=== PATIENT | male | born 1975 | race Caucasian/White ===

== ENCOUNTER 2016-04-09 20:37 | Emergency (ER) | payer MEDICAID ==
[~2016-04-09] VITALS: Ht 162.6 cm; Wt 87.6 kg
[~2016-04-09 20:37] MED LIST: BENADRYL50 MG PO; HYDROCHLOROTHIA25 M1; LIBRIUM5 M1 PO; LISINOPRIL20 M1; PROAIR HFA0.09 MG/Ac IH; VITAMIN B1 NAT100 MG PO; ZESTRIL10 MG PO; ZESTRIL20 MG PO; [UNRECOGNIZED DRUG - SUPPLY]
[2016-04-09 20:42] VITALS: BP 130/55
--- NOTE | 2016-04-09 21:33 | NUR ---
PT TAKEN TO OVERFLOW
--- NOTE | 2016-04-09 21:41 | NUR ---
AMBULATED TO ER BED 2
--- NOTE | 2016-04-09 21:53 | NUR ---
PATIENT PRESENTS TO ED WITH RECTAL BLEED X 1 MONTH AND COUGH X 2 WEEKS . PT DENIES N/V/D; SKIN IS PINK/WARM/DRY; AAOX4 WITH EVEN AND STEADY GAIT; LUNGS CLEAR BL; HR EVEN AND REGULAR; PT DENIES ANY FEVER, CP,OR SOB,AT THIS TIME; PATIENT STATES PAIN OF 10/10 AT THIS TIME; VSS; PATIENT POSITIONED FOR COMFORT; HOB ELEVATED; BEDRAILS UP X2; BED DOWN. ER MD MADE AWARE OF PT STATUS.
[2016-04-09] MEDS ORDERED: PANTOPRAZOLE 40 MG INJ VIAL IVP ONE (22:10)
[2016-04-09] MEDS ORDERED: NACL 0.9% 2,000 ML IV ONE (22:10)
--- NOTE | 2016-04-09 22:28 | NUR ---
LABS AND US DONE AT BEDSIDE
--- NOTE | 2016-04-09 23:19 | NUR ---
xray at bedside
[2016-04-09] MEDS ORDERED: MORPHINE SULFATE 4 MG/ML SYR IVP ONE (23:55)
[2016-04-09] MEDS ORDERED: ONDANSETRON 4 MG/2 ML VIAL IVP ONE (23:55)
[2016-04-09] MEDS ORDERED: ALUMINUM HYD/MAG/SIMETHICONE 30 ML, BELLADONNA/PHENOBARBITAL 10 ML, LIDOCAINE VISCOUS 2... PO ONE (23:55)
--- NOTE | 2016-04-10 00:25 | NUR ---
meds given to pt, tolerated well.
--- NOTE | 2016-04-10 01:29 | NUR ---
Patient discharged with v/s stable. Written and verbal after care instructions given and explained. Patient alert, oriented and verbalized understanding of instructions. Ambulatory with steady gait. All questions addressed prior to discharge. ID band removed. Patient advised to follow up with PMD. Rx of levaquin, pepcid and norco given. Patient educated on indication of medication including possible reaction and side effects. Opportunity to ask questions provided and answered.
[2016-04-10 01:30] VITALS: BP 117/79
== END 2016-04-10 01:31 | disposition home or self-care (01) ==
LOC: MED 20:37
DX: J18.9 Pneumonia, unspecified organism (principal); K74.60 Unspecified cirrhosis of liver; F10.10 Alcohol abuse, uncomplicated; J45.909 Unspecified asthma, uncomplicated; K21.9 Gastro-esophageal reflux disease without esophagitis; I10 Essential (primary) hypertension; Y90.9 Presence of alcohol in blood, level not specified
CPT/HCPCS: 36415; 71010; 76705; 80053; 80305; 81001; 83690; 85025; 85610; 85730; 86886; 86900; 86901; 96361; 96374; 96375; 99285; C9113; J2270; J2405; Q0092

== ENCOUNTER 2016-05-15 21:03 | Inpatient (IN) | payer MEDICAID ==
[~2016-05-15] VITALS: Ht 162.6 cm; Wt 86.2 kg
[~2016-05-15 21:03] MED LIST changes: -BENADRYL50 MG PO; -HYDROCHLOROTHIA25 M1; -LIBRIUM5 M1 PO; +LISI-420 PO; -LISINOPRIL20 M1; -PROAIR HFA0.09 MG/Ac IH; -VITAMIN B1 NAT100 MG PO; -ZESTRIL10 MG PO; -ZESTRIL20 MG PO; -[UNRECOGNIZED DRUG - SUPPLY]
[2016-05-15 21:27] VITALS: BP 126/69
--- NOTE | 2016-05-15 21:50 | NUR ---
PT TAKEN TO BED 6
[2016-05-15] MEDS ORDERED: NACL 0.9% 1,000 ML IV SCH (22:04)
[2016-05-15] MEDS ORDERED: OCTREOTIDE ACETATE 1.25 MG in NACL 0.9% 250 ML IV SCH ×2 (22:05→23:35)
--- NOTE | 2016-05-15 22:12 | NUR ---
PATIENT PRESENTS TO 40Y M PRESENT TO ER C/O VOMITTING BLOOD AND BLOOD IN STOOL THAT HAPPENS DAILY. C/O OF PAIN TO RUQ. PAIN 10/10 IN SCALE. HX CIRRHOSIS OF LIVER, HEPATITIS, ETOH, HTN. PATIENT STATES PAIN OF 10/10 AT THIS TIME; VSS; PATIENT POSITIONED FOR COMFORT; HOB ELEVATED; BEDRAILS UP X2; BED DOWN. ER MD MADE AWARE OF PT STATUS.
--- NOTE | 2016-05-15 22:23 | NUR ---
XRAY AT BEDSIDE
[2016-05-15 22:32] LABS: HEMATOCRIT 38.1 % (36-52); HEMOGLOBIN 12.3 g/dL (12.0-18.0); MEAN CORPUSCULAR HEMOGLOBIN 29 pg (27-31); MEAN CORPUSCULAR HGB CONC 32 g/dL (33-37); MEAN CORPUSCULAR VOLUME 90 fL (80-94); PLATELET COUNT (AUTO) 98 K/uL (140-450); RED BLOOD CELL COUNT(AUTO) 4.24 MIL/uL (4.20-6.10); RED CELL DISTRIBUTION WIDTH 13.5 % (11.6-13.7); WHITE BLOOD COUNT (AUTO) 9.7 K/uL (4.8-10.8)
[2016-05-15 22:42] LABS: ANION GAP 14.8 (8-16); CALCIUM 8.2 mg/dL (8.5-10.1); CARBON DIOXIDE 27.2 mmol/L (21-32)
[2016-05-15] MEDS ORDERED: OCTREOTIDE ACETATE 100 MCG/ML VIAL IV STA (22:43)
[2016-05-15 22:48] LABS: ALBUMIN 3.2 g/dL (3.4-5.0); TOTAL BILIRUBIN 0.8 mg/dL (0.0-1.0); TOTAL PROTEIN, SERUM 8.5 g/dL (6.4-8.2)
[2016-05-15 22:50] LABS: EOSINOPHILS % (MANUAL) 3 % (0-4); LYMPHOCYTES % (MANUAL) 21 % (20-46); MONOCYTES % (MANUAL) 7 % (5-12); NEUTROPHILS % (MANUAL) 69 (43-65); PLATELET ESTIMATE GIANT PLATELET SEEN
[2016-05-15] MEDS ORDERED: OCTREOTIDE ACETATE 1000 MCG/5 ML VIAL ONE (22:54)
[2016-05-15] MEDS ORDERED: ONDANSETRON 4 MG/2 ML VIAL IVP ONE (23:55)
--- NOTE | 2016-05-15 23:55 | NUR ---
Patient will be admitted to care of DR. PASCUAL. Admited to TELE. Will go to [id number]. Belongings list completed. Report GIVEN TO NEISHA BENAVIDES.
[2016-05-16] MEDS ORDERED: LORazepam 2 MG/ML VIAL IM/IVP PRN (00:10)
[2016-05-16] MEDS ORDERED: HYDROcodone/APAP 7.5/325 MG 1 TAB PO PRN (00:10)
[2016-05-16] MEDS ORDERED: ONDANSETRON 4 MG/2 ML VIAL IVP PRN (00:10)
[2016-05-16] MEDS ORDERED: MORPHINE SULFATE 2 MG/ML SYR IVP PRN (00:10)
[2016-05-16] MEDS ORDERED: ACETAMINOPHEN 325 MG TAB PO PRN (00:10)
[2016-05-16] MEDS ORDERED: LORazepam 0.5 MG TAB PO PRN (00:10)
--- NOTE | 2016-05-16 00:15 | NUR ---
PT TRANSFERRED TO FLOOR VIA GURNEY ACCOMPANIED BY RN AND EMT ON GUARDED CONDITION. ATTACHED TO MOTION PICTURE PROJECTIONIST APPRENTICE.
[2016-05-16 00:30] VITALS: BP 130/71
--- NOTE | 2016-05-16 00:30 | NUR ---
ADMITTED THIS 40 YEAR OLD MALE WITH CC OF HEMATEMESIS AND ABDOMINAL PAIN, AMBULATORY TO BED, ASSESSMENT DONE, VITAL SIGNS STABLE, 10/10 PAIN LEVEL AT THIS TIME, WILL MEDICATE PRN, NO HEMATEMESIS NOTED AT THIS TIME, NPO EXCEPT MEDS AT THIS TIME, PT MADE AWARE AND VERBALIZED UNDERSTANDING, ORIENTED TO ROOM AND CALL LIGHT, IVF AND SANDOSTATIN DRIP AT 5ML/H INFUSING WELL, SAFETY MEASURES IN PLACE, CALL LIGHT WITHIN REACH.
[2016-05-16 00:37] LABS: INR 1.3 (0.8-1.2); PARTIAL THROMBOPLASTIN TIME 28.5 secs (22-35.6); PROTHROMBIN TIME 12.8 secs (10.8-13.4)
[2016-05-16 00:50] LABS: ALBUMIN 3.3 g/dL (3.4-5.0); BILIRUBIN,DIRECT 0.5 mg/dL (0.0-0.3); CHOL/HDL RATIO 6.9 (1-4.5); MAGNESIUM 1.9 mg/dL (1.8-2.4); TOTAL BILIRUBIN 0.8 mg/dL (0.0-1.0); TOTAL PROTEIN, SERUM 8.4 g/dL (6.4-8.2)
[2016-05-16 00:58] LABS: APPEARANCE,URINE CLEAR (CLEAR); BILIRUBIN,URINE NEGATIVE (NEGATIVE); BLOOD, URINE NEGATIVE (NEGATIVE); COLOR,URINE YELLOW (YELLOW); LEUKOCYTE ESTERASE ,URINE NEGATIVE (NEGATIVE); NITRITE, URINE NEGATIVE (NEGATIVE); PH,URINE 5.5 (5.0-9.0); PROTEIN,URINE NEGATIVE (NEGATIVE); UGLUCOSE NEGATIVE (NEGATIVE); UROBILINOGEN,URINE 0.2 EU/dL (0.2 - 1)
[2016-05-16 00:58] LABS: FREE T4 (FREE THYROXINE) 1.13 ng/dL (0.76-1.46); THYROID STIMULATING HORMONE 2.57 uIU/mL (0.34-3.76)
[2016-05-16] MEDS ORDERED: PANTOPRAZOLE 40 MG INJ VIAL IVP SCH ×2 (01:00→09:00)
[2016-05-16 01:05] LABS: AMPHETAMINE, URINE NEG. ng/ml (NEG <=1000); BARBITURATE, URINE NEG. ng/ml (NEG <=200); BENZODIAZEPINE, URINE NEG. ng/mL (NEG <=200); CANNABINOID, URINE NEG. ng/mL (NEG <=50); COCAINE, URINE NEG. ng/mL (NEG <=300); OPIATE, URINE NEG. ng/mL (NEG <=2000); PHENCYCLIDINE SCREEN,URINE NEG. ng/mL (NEG <=25)
[2016-05-16 01:18] LABS: BACTERIA,URINE R /HPF (None Seen); RBC,URINE 0-5 (RARE) /HPF (0-5); SQUAMOUS EPITHELIAL CELL,UR 0-3 (FEW) /LPF (0-3 (FEW)); WBC,URINE 0-5 (RARE) /HPF (0-5)
[2016-05-16] MEDS: NACL 0.9% 1,000 ML IV SCH ×2 (01:18→08:54)
--- NOTE | 2016-05-16 01:20 | NUR ---
MEDICATED PRN WITH MORPHINE IVP, FIRST DOSE OF PROTONIX GIVEN, VOIDING FREELY PER URINAL, ALL NEEDS ATTENDED.
[2016-05-16] MEDS ORDERED: INFLUENZA VIRUS VACCINE QUAD 0.5 ML SYR IMVAC PRN (01:45)
--- NOTE | 2016-05-16 03:00 | NUR ---
ROUNDED ON PT, SLEEPING, NO SIGNS OF DISTRESS, MONITORED CLOSELY.
[2016-05-16 04:00] VITALS: BP 107/54
--- NOTE | 2016-05-16 04:00 | NUR ---
ASLEEP, EASILY AROUSABLE, VITAL SIGNS STABLE, DENIES PAIN, IVF INFUSING WELL, MAINTAINED ON NPO EXCEPT MEDS.
--- NOTE | 2016-05-16 05:29 | NUR ---
PT REFUSED SCD AT THIS TIME, RISK AND BENEFITS EXPLAINED, WILL TRY AGAIN LATER, WILL ENDORSE.
--- NOTE | 2016-05-16 06:30 | NUR ---
SLEEPING, NO SIGNS OF DISTRESS, NO EPISODE OF HEMATEMESIS NOTED, MAINTAINED ON NPO EXCEPT MEDS, IVF INFUSING WELL.
[2016-05-16 07:02] LABS: BASOPHILS # (AUTO) 0.1 K/uL (0.00-0.22); EOSINOPHILS # (AUTO) 0.1 K/uL (0-0.4); EOSINOPHILS % (AUTO) 1.7 % (0.0-4.0); HEMATOCRIT 35.4 % (36-52); HEMOGLOBIN 11.6 g/dL (12.0-18.0); LYMPHOCYTES # (AUTO) 1.8 K/uL (2.0-11.5); LYMPHOCYTES % (AUTO) 26.1 % (20.5-51.1); MEAN CORPUSCULAR HEMOGLOBIN 30 pg (27-31); MEAN CORPUSCULAR HGB CONC 33 g/dL (33-37); MEAN CORPUSCULAR VOLUME 91 fL (80-94); MONOCYTES # (AUTO) 0.7 K/uL (0.8-1.0); MONOCYTES % (AUTO) 9.9 % (1.7-9.3); NEUTROPHILS # (AUTO) 4.3 K/uL (1.8-7.7); NEUTROPHILS % (AUTO) 60.3 % (42.2-75.2); PLATELET COUNT (AUTO) 89 K/uL (140-450); RED BLOOD CELL COUNT(AUTO) 3.91 MIL/uL (4.20-6.10); RED CELL DISTRIBUTION WIDTH 13.6 % (11.6-13.7)
--- NOTE | 2016-05-16 07:17 | NUR ---
PT AWAKE, NO DISTRESS NOTED, REPORT GIVEN TO RN KEM FOR CONTINUITY OF CARE.
--- NOTE | 2016-05-16 07:20 | NUR ---
RECEIVED REPORT FROM MANAGER ENVIRONMENTAL HEALTH RN. PT IS SLEEPING. NO S/S OF ACUTE CARDIAC/RESPIRATORY DISTRESS OR DISCOMFORT. SAFETY MEASURES IN PLACE, CALL LIGHT WITHIN REACH. WILL CONTINUE PLAN OF CARE AND CONTINUE TO MONITOR.
[2016-05-16 07:27] LABS: ANION GAP 14.2 (8-16); CALCIUM 7.8 mg/dL (8.5-10.1); CARBON DIOXIDE 24.6 mmol/L (21-32); POTASSIUM 4.8 mmol/L (3.5-5.1)
[2016-05-16 07:30] LABS: MAGNESIUM 1.8 mg/dL (1.8-2.4); PHOSPHORUS 4.4 mg/dL (2.5-4.9)
[2016-05-16 08:00] VITALS: BP 125/74
[2016-05-16] MEDS ORDERED: LISINOPRIL 20 MG TAB PO SCH (09:00)
[2016-05-16] MEDS ORDERED: FAMOTIDINE 20 MG TAB PO SCH (09:00)
[2016-05-16] MEDS ORDERED: DOCUSATE SODIUM 100 MG GELCAP PO SCH (09:00)
--- NOTE | 2016-05-16 10:00 | NUR ---
PT STATED HE DOES NOT WANT TO CONTINUE WITH THE RECOMMENDED PROCEDURES AND WANTS TO LEAVE. DR MACHADO INFORMED HIM OF RISKS IF HE WILL LEAVE AMA, PT VERBALIZED UNDERSTANDING. PT SIGNED AMA FORM. ARM BANDS REMOVED, IVS REMOVED AND INTACT. TELE MONITOR RETURNED TO NURSING STATION. PT HAS NO S/S OF ACUTE DISTRESS OR DISCOMFORT. PT IN STABLE CONDITION. PT ESCORTED TO FRONT LOBBY TO BE PICKED UP BY .
[2016-05-16] MEDS ORDERED: LORazepam 0.5 MG TAB PO SCH (13:00)
== END 2016-05-16 10:00 | disposition left against medical advice (07) | DRG 770 ==
LOC: MED 21:03 → MTU 23:50
PROVIDERS: ADMIT Family Medicine; ATTEND Family Medicine
DX: F10.129 Alcohol abuse with intoxication, unspecified (principal); I85.11 Secondary esophageal varices with bleeding; G92 Toxic encephalopathy; E44.0 Moderate protein-calorie malnutrition; K70.30 Alcoholic cirrhosis of liver without ascites; I10 Essential (primary) hypertension; B19.20 Unspecified viral hepatitis C without hepatic coma; J45.909 Unspecified asthma, uncomplicated; K21.9 Gastro-esophageal reflux disease without esophagitis; Y90.8 Blood alcohol level of 240 mg/100 ml or more; E66.9 Obesity, unspecified; Z68.32 Body mass index [BMI] 32.0-32.9, adult
CPT/HCPCS: 36415; 71010; 80048; 80053; 80076; 80305; 81001; 82150; 83036; 83605; 83690; 83735; 84100; 84439; 84443; 85025; 85610; 85730; 87081; 96365; 96375; 99291; C9113; G0482; J2270; J2354; J2405; J7030; J7060; Q0092

== ENCOUNTER 2016-05-20 20:53 | Emergency (ER) | payer MEDICAID ==
[~2016-05-20] VITALS: Ht 162.6 cm; Wt 88.5 kg
[2016-05-20 20:58] VITALS: BP 134/75
--- NOTE | 2016-05-20 22:18 | NUR ---
PT TAKEN TO BED 8
--- NOTE | 2016-05-20 22:19 | NUR ---
PATIENT PRESENTS TO ED WITH VOMITING BLOOD X 3 WEEKS . PT STATES HE WAS DX WITH DIVERTICULOSIS, CIRRROHIS OF THE LIVER HERE AT [facility]. PT STATES HE HAS N/V/D [facility] FOR 3 WEEKS; SKIN IS PINK/WARM/DRY; AAOX4 WITH EVEN AND STEADY GAIT; LUNGS CLEAR BL; HR EVEN AND REGULAR; PT DENIES ANY FEVER, CP, SOB, OR COUGH AT THIS TIME; PATIENT STATES PAIN OF 10/10 AT THIS TIME WITH PAIN AT RIGHT FLANK RADIATES TO THE BACK; VSS; PATIENT POSITIONED FOR COMFORT; HOB ELEVATED; BEDRAILS UP X2; BED DOWN. ER MD MADE AWARE OF PT STATUS.
--- NOTE | 2016-05-20 22:36 | NUR ---
Dr. Quintero evaluating patient at bedside.
[2016-05-20 22:59] LABS: BASOPHILS # (AUTO) 0.4 K/uL (0.00-0.22); BASOPHILS % (AUTO) 4.3 % (0.0-2.0); EOSINOPHILS # (AUTO) 0.3 K/uL (0-0.4); EOSINOPHILS % (AUTO) 3.4 % (0.0-4.0); HEMATOCRIT 39.7 % (36-52); HEMOGLOBIN 12.8 g/dL (12.0-18.0); LYMPHOCYTES % (AUTO) 20.7 % (20.5-51.1); MEAN CORPUSCULAR HEMOGLOBIN 29 pg (27-31); MEAN CORPUSCULAR HGB CONC 32 g/dL (33-37); MEAN CORPUSCULAR VOLUME 90 fL (80-94); MONOCYTES # (AUTO) 1.1 K/uL (0.8-1.0); NEUTROPHILS # (AUTO) 5.8 K/uL (1.8-7.7); NEUTROPHILS % (AUTO) 60.6 % (42.2-75.2); PLATELET COUNT (AUTO) 123 K/uL (140-450); RED BLOOD CELL COUNT(AUTO) 4.42 MIL/uL (4.20-6.10); RED CELL DISTRIBUTION WIDTH 13.7 % (11.6-13.7); WHITE BLOOD COUNT (AUTO) 9.6 K/uL (4.8-10.8)
[2016-05-20] MEDS ORDERED: LORazepam 1 MG TAB PO ONE (23:00)
[2016-05-20 23:12] LABS: CARBON DIOXIDE 27.1 mmol/L (21-32); POTASSIUM 4.1 mmol/L (3.5-5.1)
[2016-05-20 23:27] LABS: ALBUMIN 3.4 g/dL (3.4-5.0); CALCIUM 8.1 mg/dL (8.5-10.1); CREATININE 0.9 mg/dL (0.6-1.3); TOTAL BILIRUBIN 0.8 mg/dL (0.0-1.0)
[2016-05-20 23:42] VITALS: BP 119/74
--- NOTE | 2016-05-20 23:42 | NUR ---
Patient discharged with v/s stable BY PER MD DR CARMEN. Written and verbal after care instructions given and explained BY HEAVEN CARMEN. Patient alert, oriented and verbalized understanding of instructions. Ambulatory with steady gait. All questions addressed prior to discharge BY HEAVEN CARMEN. ID band removed. Patient advised to follow up with PMD. Rx of ATIVAN 1MG AND LIBRIUM 25MG given. Patient educated on indication of medication including possible reaction and side effects. Opportunity to ask questions provided and answered BY HEAVEN CARMEN.
== END 2016-05-20 23:42 | disposition home or self-care (01) ==
LOC: MED 20:53
DX: F10.239 Alcohol dependence with withdrawal, unspecified (principal); K92.0 Hematemesis; K76.6 Portal hypertension; K21.9 Gastro-esophageal reflux disease without esophagitis; J45.909 Unspecified asthma, uncomplicated
CPT/HCPCS: 36415; 80053; 85025; 99284

== ENCOUNTER 2017-02-26 12:14 | Emergency (ER) | payer MEDICAID ==
--- NOTE | 2017-02-26 12:51 | NUR ---
PT CALLED AT THE LOBBY NO ANSWER; PT LEFT WITHOUT BEING SEEN
== END 2017-02-26 12:51 | disposition left against medical advice (07) ==
LOC: MED 12:14
DX: R51 Headache (principal); Z53.21 Procedure and treatment not carried out due to patient leaving prior to being seen by health care provider

== ENCOUNTER 2017-10-15 19:47 | Emergency (ER) | payer BC, OTHER ==
[~2017-10-15] VITALS: Ht 162.6 cm; Wt 85.3 kg
[2017-10-15 19:50] VITALS: BP 130/70
--- NOTE | 2017-10-15 19:54 | NUR ---
TO BED # 12 AMBULATORY, REPORT GIVEN TO PAUL DRIVER
--- NOTE | 2017-10-15 19:55 | NUR ---
PT PRESENTED ER WITH PAIN TO THE RIGHT LEG, GRION AND SCROTUM. PT STATED HE FEELS HE PULLED A MUSCLE X 1 DAY. NKA, MEDICAL HX IS HTN AND CIROSIS OF LIVER.SKIN IS PINK/WARM/DRY; AAOX4 WITH EVEN AND STEADY GAIT; PATIENT STATES PAIN OF 10/10 AT THIS TIME; VSS; PATIENT POSITIONED FOR COMFORT; HOB ELEVATED; BEDRAILS UP X2; BED DOWN. ER MD MADE AWARE OF PT STATUS.
--- NOTE | 2017-10-15 20:05 | NUR ---
Dr. Castillo evaluating patient at bedside.
[2017-10-15] MEDS ORDERED: KETOROLAC 60 MG/2 ML VIAL IM ONE (20:10)
--- NOTE | 2017-10-15 20:15 | NUR ---
PT REFUSED MEDICATION FOR PAIN THAT WAS ORDERD. MD GONZALES
[2017-10-15 20:25] VITALS: BP 130/70
--- NOTE | 2017-10-15 20:25 | NUR ---
Patient discharged with v/s stable. Written and verbal after care instructions given and explained. Patient verbalized understanding. Ambulatory with steady gait. All questions addressed prior to discharge. Advised to follow up with PMD.
--- NOTE | 2017-10-15 20:50 | NUR ---
Audrey mendieta in ED - 10/15/17 at 205 by [email or web address] Patient discharged with v/s stable. Written and verbal after care instructions given and explained. Patient verbalized understanding. Ambulatory with steady gait. All questions addressed prior to discharge. Advised to follow up with PMD.
== END 2017-10-15 20:25 | disposition home or self-care (01) ==
LOC: MED 19:47
DX: M25.551 Pain in right hip (principal); J45.909 Unspecified asthma, uncomplicated; K21.9 Gastro-esophageal reflux disease without esophagitis; I10 Essential (primary) hypertension; Z79.899 Other long term (current) drug therapy; M79.89 Other specified soft tissue disorders
CPT/HCPCS: 99281

== ENCOUNTER 2020-02-17 14:29 | Emergency (ER) | payer BC, SELFPAY ==
[~2020-02-17] VITALS: Ht 162.6 cm; Wt 90.7 kg
[2020-02-17 15:27] VITALS: BP 125/76
--- NOTE | 2020-02-17 15:36 | NUR ---
c/o cough, diarrhea, sore throat increasing over 1 day.
--- NOTE | 2020-02-17 17:00 | NUR ---
COVID SWAB COLLECTED.
--- NOTE | 2020-02-17 17:01 | NUR ---
Patient discharged with v/s stable. Written and verbal after care instructions given and explained. Patient alert, oriented and verbalized understanding of instructions. Ambulatory with steady gait. All questions addressed prior to discharge. ID band removed. Patient advised to follow up with PMD. Rx of PROMETHAZINE & IBUPROFEN given. Patient educated on indication of medication including possible reaction and side effects. Opportunity to ask questions provided and answered.
[2020-02-17 17:03] VITALS: BP 112/67
== END 2020-02-17 17:01 | disposition home or self-care (01) ==
LOC: MED 14:29
DX: R05 Cough (principal); Z20.828 Contact with and (suspected) exposure to other viral communicable diseases; J45.909 Unspecified asthma, uncomplicated; K21.9 Gastro-esophageal reflux disease without esophagitis; I10 Essential (primary) hypertension; Z79.899 Other long term (current) drug therapy
CPT/HCPCS: 82948; 99283; U0003

== ENCOUNTER 2021-09-17 10:19 | Emergency (ER) | payer BC ==
[~2021-09-17] VITALS: Ht 162.6 cm; Wt 81.6 kg
[~2021-09-17 10:19] MED LIST changes: -LISI-420 PO; +LISI-487 PO
[2021-09-17 10:54] VITALS: BP 102/49
--- NOTE | 2021-09-17 10:57 | NUR ---
PT TO STAY OUT FRONT.
--- NOTE | 2021-09-17 11:07 | NUR ---
45 Y/O MALE C/O HEADACHE 12/14, +N/V/D, BODY ACHES, +FEVER/CHILLS X2DAYS. + COVID CONTACT WITH FAMILY MEMBER. PMH: HTN, ASTHMA NKA
--- NOTE | 2021-09-17 11:49 | NUR ---
COLLECTED TONIO WELSH, WALKED TO LAB.
[2021-09-17] MEDS ORDERED: NIRM1TAB PO (11:56)
--- NOTE | 2021-09-17 12:21 | NUR ---
Patient discharged with v/s stable. Written and verbal after care instructions given FOR COVID 19 and explained. Patient alert, oriented and verbalized understanding of instructions. Ambulatory with steady gait. All questions addressed prior to discharge. ID band removed. Patient advised to follow up with PMD. Rx of PAXLOVID given. Patient educated on indication of medication including possible reaction and side effects. Opportunity to ask questions provided and answered.
== END 2021-09-17 12:21 | disposition home or self-care (01) ==
LOC: MED 10:19
DX: U07.1 COVID-19 (principal); J45.909 Unspecified asthma, uncomplicated; I10 Essential (primary) hypertension
CPT/HCPCS: 87635; 99283; C9803

== ENCOUNTER 2023-03-20 22:56 | Emergency (ER) | payer BC ==
[~2023-03-20] VITALS: Ht 162.6 cm; Wt 80.3 kg
[~2023-03-20 22:56] MED LIST changes: +NIRM1TAB PO
[2023-03-20 23:00] VITALS: BP 124/70; PULSE 90; RESP 17; TEMP 98.8; O2SAT 97
[2023-03-20 23:44] LABS: BASOPHILS # (AUTO) 0.1 K/uL (0.00-0.22); BASOPHILS % (AUTO) 2.1 % (0.0-2.0); EOSINOPHILS # (AUTO) 0.1 K/uL (0-0.4); EOSINOPHILS % (AUTO) 2.4 % (0.0-4.0); HEMATOCRIT 25.8 % (36-52); HEMOGLOBIN 7.9 g/dL (12.0-18.0); LYMPHOCYTES # (AUTO) 1.1 K/uL (2.0-11.5); MEAN CORPUSCULAR HEMOGLOBIN 21 pg (27-31); MEAN CORPUSCULAR HGB CONC 31 g/dL (33-37); MEAN CORPUSCULAR VOLUME 67.9 fL (80-94); MONOCYTES # (AUTO) 0.9 K/uL (0.8-1.0); MONOCYTES % (AUTO) 17.7 % (1.7-9.3); NEUTROPHILS # (AUTO) 2.8 K/uL (1.8-7.7); NEUTROPHILS % (AUTO) 56.8 % (42.2-75.2); PLATELET COUNT (AUTO) 87 K/uL (140-450); RED CELL DISTRIBUTION WIDTH 19.7 % (11.6-13.7)
[2023-03-20 23:55] LABS: ANION GAP 10.1 (8-16); CALCIUM 8.2 mg/dL (8.5-10.1); CARBON DIOXIDE 28.4 mmol/L (21-32); CREATININE 1.1 mg/dL (0.6-1.3); POTASSIUM 3.5 mmol/L (3.5-5.1)
[2023-03-21 00:02] LABS: ALANINE AMINOTRANSFERASE 35 U/L (12-78); ALBUMIN 2.9 g/dL (3.4-5.0); ALKALINE PHOSPHATASE 165 U/L (50-136); ASPARTATE AMINOTRANSFERASE 51 U/L (15-37); BILIRUBIN,DIRECT 0.5 mg/dL (0.0-0.3); TOTAL BILIRUBIN 0.8 mg/dL (0.0-1.0); TOTAL PROTEIN, SERUM 7.7 g/dL (6.4-8.2)
[2023-03-21 00:45] VITALS: BP 118/53; PULSE 92; RESP 15; O2SAT 93
[2023-03-21] MEDS ORDERED: AMOX1TAB8 PO (01:02)
[2023-03-21] MEDS ORDERED: AZIT250T4 PO (01:02)
== END 2023-03-21 01:28 | disposition home or self-care (01) ==
LOC: MED 22:56
DX: J18.9 Pneumonia, unspecified organism (principal); D64.9 Anemia, unspecified; D69.6 Thrombocytopenia, unspecified; J45.909 Unspecified asthma, uncomplicated; I10 Essential (primary) hypertension; K74.60 Unspecified cirrhosis of liver; K21.9 Gastro-esophageal reflux disease without esophagitis; Z79.899 Other long term (current) drug therapy
CPT/HCPCS: 36415; 71045; 80048; 80076; 83880; 84484; 85025; 93005; 99285; Q0092